=== PATIENT | female | born 1950 | race Caucasian/White ===

== ENCOUNTER 2017-05-25 16:57 | Emergency (ER) | payer OTHER ==
[~2017-05-25] VITALS: Ht 157.5 cm; Wt 68.0 kg
[2017-05-25 17:07] VITALS: BP 129/71; PULSE 96; RESP 18; TEMP 98.2; O2SAT 99
--- NOTE | 2017-05-25 17:46 | RADRPT ---
EXAM DATE/TIME: 05/25/2017 17:22 [place] COMPARISON: No previous studies available for comparison. INDICATIONS : Left upper arm pain after fall. MEDICAL HISTORY : None. SURGICAL HISTORY : None. ENCOUNTER: Initial ACUITY: 1 day PAIN SCORE: 10/10 LOCATION: Left humerus. FINDINGS: 2 views of the left humerus reveal an acute fracture involving the humeral neck with extension to the greater tuberosity. There is some extension to the articular surface of the humeral head suspected. The remaining humerus is intact. CONCLUSION: Acute proximal humeral fracture as detailed above. Huey Pinzon Jr., MD on May 25, 2017 at 17:43 Board Certified Radiologist. This report was verified electronically.
[2017-05-26] MEDS ORDERED: ASPI1POW6 PO (09:51)
[2017-05-26] MEDS ORDERED: PERC7.5T13 PO (10:09)
== END 2017-05-25 22:12 | disposition left against medical advice (07) ==
LOC: NED 16:57
DX: S49.92XA Unspecified injury of left shoulder and upper arm, initial encounter (principal); X58.XXXA Exposure to other specified factors, initial encounter
CPT/HCPCS: 73060; 99281

== ENCOUNTER 2017-05-26 09:16 | Emergency (ER) | payer OTHER ==
[~2017-05-26] VITALS: Ht 157.5 cm; Wt 70.0 kg
[2017-05-26 09:29] VITALS: BP 137/77; PULSE 93; RESP 18; TEMP 98.7; O2SAT 97
[2017-05-26] MEDS ORDERED: ASPI1POW6 PO (09:51)
--- NOTE | 2017-05-26 10:08 | PD ---
HPI Chief Complaint: Injury Time Seen by Provider: 09:38 Travel History International Travel<30 days: No Contact w/Intl Traveler<30days: No Traveled to known affect area: No History of Present Illness HPI This patient complains of injury to her left arm. Yesterday at 8 in the morning at work she slipped and fell and landed on her left shoulder. She complains of pain. Severity is moderate. It's worse with movement. She came to the ER last night and had an x-ray would be for provider can see her she had to leave and did not get evaluated PFSH Past Medical History ?: Not Menopausal: Yes Social History Alcohol Use: No Tobacco Use: No Substance Use: No Allergies-Medications (Allergen,Severity, Reaction): Coded Allergies: codeine (Verified Adverse Reaction, Severe, Itching, 05/25/17) Reported Meds & Prescriptions Reported Meds & Active Scripts Active Reported Goodys Extra Strength Powder (Tpcuctb-Llfkcvoadgdbd-Ugldopls Powder) 260-520- 32.5 Mg Powderpack 1 Pkt PO PRN Review of Systems General / Constitutional: No: Fever HENT: No: Headaches Cardiovascular: No: Chest Pain or Discomfort Physical Exam Narrative SKIN: Focused skin assessment reveals no rash or ulcers. Skin is warm and dry. Palpation shows no induration or nodules. Psych: Normal mood and affect. Normal insight and judgment. Left arm: Patient has tenderness at the proximal humerus. There is ecchymosis there. The arm is neurovascularly intact.. No open wound Data Data Last Documented VS Vital Signs Date Time Temp Pulse Resp B/P (MAP) Pulse Ox O2 Delivery O2 Flow Rate FiO2 05/26/17 09:29 98.7 93 18 137/77 (97) 97 MDM Medical Decision Making Medical Screen Exam Complete: Yes Emergency Medical Condition: Yes Medical Record Reviewed: Yes Differential Diagnosis Humerus fracture, dislocation of shoulder, contusion Narrative Course I have reviewed the patient's electronic medical record. I reviewed her x-rays from last night. She has a fracture of the proximal left humerus Placed her in a sling and swath Gave her some pain medication Recommend orthopedic follow-up Diagnosis Primary Impression: Closed left humeral fracture Qualified Codes: S42.252A - Displaced fracture of greater tuberosity of left humerus, initial encounter for closed fracture Additional Instructions: Follow-up with orthopedist Wear sling and swath Apply ice to left shoulder The patient was warned about potential sedation for the medications they will receive on prescription. Med/Other Pt SpecificInfo: Prescription(s) given Disposition: 01 DISCHARGE HOME Condition: Stable Salomón Starr MD May 26, 2017 10:08
[2017-05-26] MEDS ORDERED: PERC7.5T13 PO (10:09)
== END 2017-05-26 10:41 | disposition home or self-care (01) ==
LOC: NEPD 09:16
DX: S42.252A Displaced fracture of greater tuberosity of left humerus, initial encounter for closed fracture (principal); Z88.5 Allergy status to narcotic agent; W01.0XXA Fall on same level from slipping, tripping and stumbling without subsequent striking against object, initial encounter
CPT/HCPCS: 29240